=== PATIENT | male | born 1985 | race Two or more races ===

== ENCOUNTER → 2021-06-17 13:26 | Outpatient (REF) | payer MEDICAID, SELFPAY ==
--- NOTE | 2021-06-17 13:42 | ECG_ITS ---
Test Reason : PALPITATIONS Blood Pressure : / mmHG Vent. Rate : 084 BPM Atrial Rate : 084 BPM P-R Int : 174 ms QRS Dur : 096 ms QT Int : 350 ms P-R-T Axes : 066 066 042 degrees QTc Int : 413 ms Normal sinus rhythm Normal ECG No previous ECGs available Referred By: Daphney Pickett Electronically Signed By:LYLA KINNEY MD
== END ==
LOC: HO.CARD 13:26
PROVIDERS: PCP Nurse Practitioner Primary Care; Visit Provider Nurse Practitioner Primary Care
DX: R07.89 Other chest pain (principal); R00.2 Palpitations
CPT/HCPCS: 93005

== ENCOUNTER → 2021-07-10 10:32 | Outpatient (REF) | payer MEDICAID, SELFPAY ==
--- NOTE | 2021-07-10 11:00 | CA_ITS ---
Acquisition Time: 2021-07-10 10:55:23 Total Exercise Time: 00:12:01 Test Indications: Dyspnea Medications: LOSARTAN Protocol: CHERIE Max HR: 184 BPM 99% of Pred: 185 BPM Max BP: 160/090 mmHG Max Work Load: 13.4 METS Exercise stress test with exercise 12 min 1 sec of Cherie protocol achieving 99% MPHR, with jogging for with the last 3 min, with report of sob, chest tightness like he can't get the air in , without arrythmia, with normotensive response to exercise, without EKG changes meeting criteria for ischema. In recovery his symptoms resolved. Echo images obtained by tech at rest and immediately post peak exercise, Definity contrast used. Test reviewed with Dr Montague Referred By: Daphney Pickett Overread By: RACHANA PATRICIO
== END ==
LOC: HO.CARD 10:32
PROVIDERS: Visit Provider Nurse Practitioner Primary Care
DX: R07.89 Other chest pain (principal); I10 Essential (primary) hypertension
CPT/HCPCS: 93350; Q9957

== ENCOUNTER → 2021-09-19 11:10 | Outpatient (BNVA) | payer OTHER, SELFPAY | PROVIDERS: PCP Nurse Practitioner Primary Care; Visit Provider Physician Assistant | DX: S39.012A Strain of muscle, fascia and tendon of lower back, initial encounter (principal); X50.0XXA Overexertion from strenuous movement or load, initial encounter | CPT/HCPCS: 99203 ==

== ENCOUNTER → 2021-09-23 13:07 | Outpatient (BNVA) | payer OTHER, SELFPAY | PROVIDERS: PCP Nurse Practitioner Primary Care; Visit Provider Physician Assistant Medical | DX: S39.012A Strain of muscle, fascia and tendon of lower back, initial encounter (principal); X58.XXXA Exposure to other specified factors, initial encounter | CPT/HCPCS: 99213 ==

== ENCOUNTER 2023-01-16 08:00 | Outpatient (RCR) | payer MEDICAID, SELFPAY | END 2023-02-17 11:02 | disposition home or self-care (01) | LOC: HO.PT 08:00 | PROVIDERS: PCP Nurse Practitioner Primary Care; Visit Provider Nurse Practitioner Primary Care | DX: M54.50 Low back pain, unspecified (principal) | CPT/HCPCS: 97110; 97140; 97161; 97535 ==

== ENCOUNTER 2023-08-14 09:17 | Outpatient (REF) | payer MEDICAID, SELFPAY | END 2023-08-14 09:18 | disposition home or self-care (01) | LOC: HO.HHCL 09:17 | PROVIDERS: Visit Provider Nurse Practitioner Primary Care | DX: I10 Essential (primary) hypertension (principal); M79.10 Myalgia, unspecified site; R53.83 Other fatigue | CPT/HCPCS: 36415; 80048; 82043; 82550; 82570; 82607 ==

== ENCOUNTER 2023-08-19 07:30 | Outpatient (AMB) | payer MEDICAID, SELFPAY ==
[2023-08-19 07:49] VITALS: BP 138/88; PULSE 88; O2SAT 99; BMI 29.0
--- NOTE | 2023-08-19 07:49 | MHC.OFFVIS ---
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 Patient states I always had sleeping issues but the last few years Iv had some physical changes like fatigue, I feel sleepy during the day I cant watch a movie without falling asleep. Allergies SEAFOOD Allergy (Unknown, Uncoded 08/19/23 08:00) THROAT SWELLING HPI HPI Comments History of Present Illness Details 37 y/o male patient presents for new in-person visit for sleep consultation. Pt reports difficulty falling asleep, and staying sleep, It has been worsened over the last couple of years. He tosses and turns, it takes couple of hours to fall asleep. He snores and has gasping arousals in the middle of night. He wakes up around 3-4 am and it is hard to go back to sleep. He tried lots of things to sleep better, changed mattress, pillow, light and practice sleep hygiene, but they did not help. He feels tired and run out of energy during daytime. He used to be very athletic, but not anymore, he feels exhausted and feels not recover well after exercise. He lost about 60 lb over the last year. Sleep questionnaire: Have you ever been diagnosed with a sleep disorder? No. Have you ever had a sleep study in the past? No. Have you ever been treated for a sleep disorder? No. Do you take medications for a sleep disorder? No. Do you snore? Yes. Do you wake up gasping at night? Yes. Do you have episodes of apneas? Yes. If yes, are they witnessed? Yes. Do you have episodes of nocturnal chest pain or dyspnea? Yes. Do you have difficulty initiating sleep? Yes. Do you have difficulty maintaining sleep? Yes. Do you wake up tired? Yes. Do you have headaches upon awakening? Yes. Do you wake up with dry mouth or throat? Yes. Do you have GERD? No. Do you have nocturia? No. Do you have nocturnal leg cramps? Yes. Do you have symptoms of restless legs? Yes. Do you act out your dreams? Talking sometimes. Sleep hygiene questionnaire: What is your usual sleep routine? Usual bedtime is at 9 pm; Usual wake up time is at 4-5:30 am. Do you take naps? Try not to, but can fall asleep. Is your sleep environment cool, dark, and quiet? Yes. Do you exercise? No. Do you take caffeine or other stimulants? Coffee in the morning. Do you use electronics in bed? No. What is your work schedule? 7 am- 3: 30 pm. Hypersomnolence questionnaire: Do you have daytime tiredness or fatigue? Yes. Do you easily fall asleep when inactive? Yes. Have you ever had episodes of sudden weakness? No. Have you ever had episodes of sudden weakness associated with strong emotions? No. PFSH Family History (Updated 08/19/23 @ 08:03 by BRAD Ferreira) Father Sleep apnea HTN (hypertension) Mother Glaucoma Brother HTN (hypertension) Social History (Updated 08/19/23 @ 08:03 by BRAD Ferreira) Alcohol intake: never Patient Tobacco Use Status: Never used Tobacco Review of Systems Const All systems reviewed & are unremarkable except as noted in HPI and below Physical Exam Vital Signs: Last Vital Signs Pulse 88 08/19/23 07:49 BP 138/88 08/19/23 07:49 Pulse Ox 99 08/19/23 07:49 Oxygen Delivery Method Room Air 08/19/23 07:49 BMI result Body Mass Index 29.0 Const General: cooperative Nutritional Appearance: overweight Orientation/consciousness: patient oriented x3 Neck Neck: Yes full ROM and Yes supple Resp Effort & Inspection: normal respiratory effort and able to speak in complete sentences Neuro General: patient oriented x3, gait normal and moves all extremities Cognition (Neuro): normal cognition Gait exam (Neuro): Normal gait present Motor exam (neuro): 5/5 motor strength present throughout, Pronator motor function not present and no tremor noted Psych Appearance: grossly normal Mental Status: mental status grossly normal Speech and movement: Normal speech and movement present Affect: normal affect Attitude: cooperative Assessment & Plan Assessment & Plan (1) Daytime sleepiness: Code(s): R40.0 - Somnolence (2) Snoring: Code(s): R06.83 - Snoring (3) Difficulty sleeping: Code(s): G47.9 - Sleep disorder, unspecified Plan Pt is advised to undergo home sleep study to assess for sleep apnea. Will f/u with pt after study to discuss results and appropriate treatment options. Advised patient to try supplement, magnesium, calcium and vitmain D, and vitamin B complex with C. Encouraged patient to do daily gentle exercise, 30 walking daily, and having well balanced diet. Pt to call with any worsening concerns or questions. Orders: Orders RT home sleep study Today R06.83 - Snoring, R40.0 - Somnolence Coding Level of Care Code New Pt Level 4 (92738) Diagnoses Daytime sleepiness R40.0 Snoring R06.83 Difficulty sleeping G47.9
== END 2023-08-19 08:42 | disposition home or self-care (01) ==
PROVIDERS: PCP Nurse Practitioner Primary Care; Visit Provider Nurse Practitioner Family
DX: R40.0 Somnolence (principal); R06.83 Snoring; G47.9 Sleep disorder, unspecified
CPT/HCPCS: 99204

== ENCOUNTER → 2023-08-19 07:30 | Outpatient (BNVA) | payer MEDICAID, SELFPAY | PROVIDERS: PCP Nurse Practitioner Primary Care; Visit Provider Nurse Practitioner Family | DX: R40.0 Somnolence (principal); R06.83 Snoring; G47.9 Sleep disorder, unspecified | CPT/HCPCS: 99212 ==

== ENCOUNTER → 2023-10-06 15:41 | Outpatient (REF) | payer MEDICAID, SELFPAY | LOC: HO.SL 15:41 | PROVIDERS: PCP Nurse Practitioner Primary Care; Visit Provider Nurse Practitioner Family | DX: R40.0 Somnolence (principal); R06.83 Snoring | CPT/HCPCS: 95806 ==

== ENCOUNTER → 2023-10-06 15:54 | Outpatient (BNV) | payer MEDICAID, SELFPAY | PROVIDERS: PCP Nurse Practitioner Primary Care; Visit Provider Psychiatry & Neurology Neurology | DX: R06.83 Snoring (principal); R40.0 Somnolence | CPT/HCPCS: 95806 ==

== ENCOUNTER 2023-11-27 08:52 | Outpatient (AMB) | payer MEDICAID, SELFPAY ==
--- NOTE | 2023-11-27 09:00 | MHC.OFFVIS ---
Intake Vital Signs 11/27/23 09:05 Height 5 ft 11 in Weight 207 lb 8 oz BMI 28.9 BP 130/82 Blood Pressure Location Lt brachial Position Sitting Pulse 79 Pulse Source Pulse Oximeter Pulse Oximetry (%) 98 Oxygen Delivery Method Room Air Intake Visit Reasons: 3 mo f/u-Disturbance in Sleep Behavior/Fatigue-LvM Intake Note: Patient presents three month F/U disturbance in sleep. Allergies SEAFOOD Allergy (Unknown, Uncoded 08/19/23 08:00) THROAT SWELLING HPI HPI Comments History of Present Illness Details 38 y/o male patient presents for follow up of sleep study. Home sleep study result did not meet the criteria for sleep apnea. AHI was 4/hr and oxygen silke was 86% and mild snoring noted. His sleep has improved with nory, mag and D supplement. He can fall asleep easily, but still can wake up around 3 am, but it happens less frequently, about two times a week. He started exercise and trying to lose wt. PFSH Family History Father Sleep apnea HTN (hypertension) Mother Glaucoma Brother HTN (hypertension) Social History Alcohol intake: never Patient Tobacco Use Status: Never used Tobacco Review of Systems Const All systems reviewed & are unremarkable except as noted in HPI and below Physical Exam Vital Signs: Last Vital Signs Pulse 79 11/27/23 09:05 BP 130/82 11/27/23 09:05 Pulse Ox 98 11/27/23 09:05 Oxygen Delivery Method Room Air 11/27/23 09:05 BMI result Body Mass Index 28.9 Const General: cooperative Nutritional Appearance: overweight Orientation/consciousness: patient oriented x3 Neck Neck: Yes full ROM and Yes supple Resp Effort & Inspection: normal respiratory effort and able to speak in complete sentences Neuro General: patient oriented x3, gait normal and moves all extremities Cognition (Neuro): normal cognition Gait exam (Neuro): Normal gait present Motor exam (neuro): 5/5 motor strength present throughout, Pronator motor function not present and no tremor noted Psych Appearance: grossly normal Mental Status: mental status grossly normal Speech and movement: Normal speech and movement present Affect: normal affect Attitude: cooperative Assessment & Plan Assessment & Plan (1) Daytime sleepiness: Code(s): R40.0 - Somnolence (2) Snoring: Code(s): R06.83 - Snoring (3) Difficulty sleeping: Code(s): G47.9 - Sleep disorder, unspecified Plan Advised patient to continue to try magnesium, calcium and vitmain D, and vitamin B complex with C. Encouraged patient to do daily gentle exercise, 30 walking daily, and having well balanced diet. Pt to call with any worsening concerns or questions. Coding Level of Care Code Est Pt Level 3 (48568) Diagnoses Daytime sleepiness R40.0 Snoring R06.83 Difficulty sleeping G47.9
[2023-11-27 09:05] VITALS: BP 130/82; PULSE 79; O2SAT 98; BMI 28.9
== END 2023-11-27 09:41 | disposition home or self-care (01) ==
PROVIDERS: PCP Nurse Practitioner Primary Care; Visit Provider Nurse Practitioner Family
DX: R40.0 Somnolence (principal); R06.83 Snoring; G47.9 Sleep disorder, unspecified
CPT/HCPCS: 99213

== ENCOUNTER → 2023-11-27 08:52 | Outpatient (BNVA) | payer MEDICAID, SELFPAY | PROVIDERS: PCP Nurse Practitioner Primary Care; Visit Provider Nurse Practitioner Family | DX: G47.9 Sleep disorder, unspecified (principal); R06.83 Snoring; R40.0 Somnolence | CPT/HCPCS: 99212 ==

== ENCOUNTER 2024-05-18 08:01 | Outpatient (REF) | payer MEDICAID, SELFPAY ==
[2024-05-18 14:10] LABS: MANUAL DIFF FLAG NO
[2024-05-18 14:16] LABS: Basophils Percent Auto 0.4 % (0-2); Eosinophils Absolute Auto 0.1 X10*3/uL (0.0-0.4); Eosinophils Percent Auto 1.4 % (0-4); Hematocrit 46.5 % (42.0-52.0); Hemoglobin 15.4 g/dl (14.0-18.0); Imm Gran Abs Auto 0.06 X10*3/uL (0.00-0.03); Imm Gran Pct Auto 0.8 % (0.0-0.4); Lymphocytes Absolute Auto 2.2 X10*3/uL (1.2-4.9); Lymphocytes Percent Auto 28.1 % (20-40); Mean Corpuscular HGB Conc 33.1 g/dl (31.0-36.0); Mean Corpuscular Hemoglobin 28.7 pg (27.0-33.0); Mean Corpuscular Volume 86.8 fL (80.0-98.0); Mean Platelet Volume 11.4 fL (9.4-12.4); Monocytes Absolute Auto 0.6 X10*3/uL (0.1-1.2); Monocytes Percent Auto 7.8 % (2-11); Neutrophils Absolute Auto 4.7 x10*3/uL (2.0-8.3); Neutrophils Percent Auto 61.5 % (45-73); Platelet Count 250 X10*3/uL (160-400); Red Blood Count 5.36 X10*6/uL (4.60-5.80); Red Cell Distribution Width 13.2 % (11.0-16.0); White Blood Count 7.7 X10*3/uL (4.8-10.8)
[2024-05-18 14:35] LABS: Estimated Average Glucose 111 mg/dL; Hemoglobin A1c % 5.5 % (<6.0)
[2024-05-18 14:53] LABS: Alanine Aminotransferase 24 U/L (0-40); Albumin Level 4.1 g/dL (3.5-5.0); Alkaline Phosphatase 78 U/L (39-117); Anion Gap 13 (12-20); Aspartate Amino Transferase 16 U/L (5-37); Bilirubin Total 1.1 mg/dL (0.0-1.0); Blood Urea Nitrogen 20 mg/dL (9-16); Calcium 9.4 mg/dL (8.4-10.2); Carbon Dioxide 26 mmol/L (22-29); Chloride 105 mmol/L (96-108); Cholesterol 216 mg/dL (<200); Estimated Glomerular Filt Rate > 60; Glucose Random 87 mg/dL (60-115); HDL Cholesterol 49 mg/dL (>40); Iron 133 mcg/dL (45-160); LDL Cholesterol Calculated 105 mg/dL (<100); Percent Iron Saturation 41 % (15-50); Potassium 3.9 mmol/L (3.3-5.1); Sodium 140 mmol/L (135-145); TSH reflex Free T4 2.07 uIU/mL (0.32-4.0); Total Iron Binding Capacity 322 mcg/dL (228-428); Triglycerides 314 mg/dL (<150); Unsaturated Iron Binding 189 ug/dL
[2024-05-23 15:03] LABS: Aldosterone/Renin Ratio 6.5 Ratio (0.9-28.9); Plasma Renin Activity 0.62 ng/mL/h (0.25-5.82)
[2024-05-25 06:59] LABS: Testosterone, Free 76.4 pg/mL (35.0-155.0); Testosterone, Total 308 ng/dL (250-1100)
== END 2024-05-18 08:02 | disposition home or self-care (01) ==
LOC: HO.CHCLDS 08:01
PROVIDERS: Visit Provider Internal Medicine
DX: I10 Essential (primary) hypertension (principal); R73.03 Prediabetes; R53.83 Other fatigue
CPT/HCPCS: 36415; 80053; 80061; 82088; 83036; 83540; 83835; 84402; 84403; 84443; 85025

== ENCOUNTER 2024-05-18 08:25 | Outpatient (REF) | payer MEDICAID, SELFPAY ==
[2024-05-22 12:24] LABS: Metanephrine, Free 30 pg/mL (<=57); Normetanephrines, Free 35 pg/mL (<=148); Total Metanephrine, Free 65 pg/mL (<=205)
== END 2024-05-18 08:26 | disposition home or self-care (01) ==
LOC: HO.LAB 08:25
PROVIDERS: PCP Internal Medicine; Visit Provider Internal Medicine
DX: I10 Essential (primary) hypertension (principal)
CPT/HCPCS: 36415; 83835

== ENCOUNTER 2024-05-23 14:26 | Outpatient (REF) | payer OTHER, SELFPAY ==
--- NOTE | ~2024-05-23 | US_ITS ---
EXAMINATION: US RETROPERITONEAL LIMITED (RENAL ONLY) CLINICAL INFORMATION: Hypertension. COMPARISON: None available. TECHNIQUE: Real-time imaging of the kidneys. Limited visualization due to bowel gas. FINDINGS: RIGHT KIDNEY: 11.4 x 5.2 x 5.1 cm (SAG x AP x TRV). Possible 0.5 cm upper pole calculus. Limited visualization. No hydronephrosis. Renal cortical thickness is normal. LEFT KIDNEY: 11.8 x 5.3 x 5.2 cm (SAG x AP x TRV). Possible 0.6 cm upper pole calculus. Limited visualization. No hydronephrosis. Renal cortical thickness is normal. US/US renal BI IMPRESSION: Possible bilateral renal calculi. No hydronephrosis.
== END 2024-05-23 14:27 | disposition home or self-care (01) ==
LOC: HO.US 14:26
PROVIDERS: PCP Internal Medicine; Visit Provider Internal Medicine
DX: I10 Essential (primary) hypertension (principal)
CPT/HCPCS: 76775

== ENCOUNTER 2025-02-04 20:38 | Emergency (ER) | payer OTHER, SELFPAY ==
--- NOTE | ~2025-02-04 | XR_ITS ---
CLINICAL HISTORY: pain 3 views lumbar spine Comparison: None Findings: Normal vertebral body alignment. No acute fractures or dislocation. No significant degenerative change. IMPRESSION: No acute findings. This document has been electronically signed by: Axel Conrad MD on 02/04/2025 22:02:49
[2025-02-04 20:50] VITALS: BP 166/89; PULSE 90; RESP 16; TEMP 36.8; O2SAT 98; BMI 30.3
--- NOTE | 2025-02-04 20:51 | ED.GENADULT ---
HPI - General Adult General Chief complaint: Extremity Problem Stated complaint: lower back pain Time Seen by Provider: 02/04/25 22:08 Source: patient Limitations: no limitations History of Present Illness ED Provider: Janie Fields PA-C HPI narrative: 39-year-old male presents with low back pain x 2 weeks. Patient states all over he had been running, he woke the next day with low back pain. His symptoms seemed to improve. Over the past day, patient states he was leaning over counter he stood up abruptly and had acute onset low back pain with radiation down the right lower extremity. Associated paresthesias of lower extremity. Denies urinary retention, bowel incontinence, weakness of lower extremities or saddle anesthesia. Patient states he sustained a low back injury in the past, he had required physical therapy. Related Data Home Medications ?Medication ?Instructions ?Recorded ?Confirmed chlorhexidine gluconate 0.12 % 15 ml PO BID 11/27/23 mouthwash Previous Rx's ?Medication ?Instructions ?Recorded ketorolac 10 mg tablet 10 mg PO Q6H PRN pain #20 tabs 02/04/25 methocarbamol 750 mg tablet 1,500 mg (2 x 750 mg) PO Q8H PRN 02/04/25 pain, moderate #30 tabs methylprednisolone 4 mg tablets in 4 mg PO QAM #21 ea 02/04/25 a dose pack (Medrol (Edgar)) oxycodone 5 mg tablet 5 mg PO Q6H PRN pain #16 tabs 02/04/25 Allergies Allergy/AdvReac Type Severity Reaction Status Date / Time SEAFOOD Allergy Unknown THROAT Uncoded 02/04/25 20:52 SWELLING Review of Systems Review of Systems: Yes all other systems are reviewed and are negative Constitutional: Constitutional: Denies fatigue and Denies fever(s) Cardiovascular: Cardiovascular: Denies chest pain Gastrointestinal: Gastrointestinal: Denies abdominal pain Musculoskeletal: Musculoskeletal: Reports back pain, Denies muscle weakness, Denies numbness, Reports radiating pain into limb and Reports tingling Neurologic: Denies numbness and Reports tingling Endocrine: Endocrine: Denies fatigue PMFSH Past Medical History Attestation statement: The following information was validated with the patient. Family History Family History Father Sleep apnea HTN (hypertension) Mother Glaucoma Brother HTN (hypertension) Social History Social History Unable to assess alcohol history related to: Unknown Alcohol intake: never Patient Tobacco Use Status: Never used Tobacco Use of substances other than those prescribed or required for medical reasons: Unknown Advance Directives: No Advance Directives Information Provided: No Do you have a plan to hurt others: No Plan Physical Exam ED Vital Signs: Vital Signs - 24 hr 02/04/25 20:50 02/04/25 22:39 Temperature 98.2 F 98.8 F Pulse Rate 90 92 Respiratory Rate 16 18 Blood Pressure 166/89 H 145/69 H Pulse Oximetry 98 97 Oxygen Delivery Method Room Air Room Air BMI result Body Mass Index 30.3 Const Other: Alert appears very uncomfortable Orientation/consciousness: patient oriented x3 Resp Effort & Inspection: normal respiratory effort Cardio Other: Normal peripheral perfusion Back/Spine/Pelvis Other: No midline tenderness Skin Other: Warm dry no rash Neuro Other: Antalgic gait General: patient oriented x3, no focal motor deficits and CN's II-XI intact bilaterally Extrem Other: Strength 5/5 bilateral lower extremities, patient unable to perform forward bend. He is very rigid with the his movements with transitioning from lying down to sitting and then sitting to standing. Psych Other: Cooperative Course Course Course Narrative: Medical screening exam performed. Please refer to detailed history, exam, evaluation, and management by primary provider. Acute low back pain starting , 01/19 after running. Medical Decision Making Medical Decision Making [facility] Narrative: 39-year-old male presents with low back pain x 2 weeks. Patient states all over he had been running, he woke the next day with low back pain. His symptoms seemed to improve. Over the past day, patient states he was leaning over counter he stood up abruptly and had acute onset low back pain with radiation down the right lower extremity. Associated paresthesias of lower extremity. Denies urinary retention, bowel incontinence, weakness of lower extremities or saddle anesthesia. Patient states he sustained a low back injury in the past, he had required physical therapy. No chronic issues History: Per patient I have considered the following differential diagnoses: Lumbar strain, lumbar radiculopathy, cauda equina, compression fracture Plan: X-ray obtained from triage, there was fracture, he has no significant arthritic changes. Patient has symptoms of lumbar radiculopathy without red flag signs symptoms concerning for cord compression. We will treat with analgesia and anti-inflammatory. X-ray lumbar spine:indings: Normal vertebral body alignment. No acute fractures or dislocation. No significant degenerative change. IMPRESSION: No acute findings. Discharge Plan Discharge Clinical Impression: Acute lumbar radiculopathy Patient Disposition: Home, Self-Care Instructions: Lumbar Radiculopathy (ED), Lower Back Exercises (ED) Additional Instructions: You are being treated for lumbar radiculopathy, or sciatica. See home care instructions. The x-ray was normal. Use the Medrol Dosepak as directed, this is a steroid taper , it is an anti-inflammatory. Use the ketorolac as directed this is also an anti-inflammatory but take it with food. Use the methocarbamol as needed for further pain this is the muscle relaxant. It may cause drowsiness do not drive or operate machinery while taking this medication. Lastly use the oxycodone as needed for further pain, this medication can also be sedating, do not drive or operate machinery. The oxycodone can cause constipation, use an [id number] stool softener to help prevent constipation. Follow up with your primary care provider next week. Prescriptions: New methocarbamol 750 mg tablet 1,500 mg PO Q8H PRN (Reason: pain, moderate) Qty: 30 0RF oxycodone 5 mg tablet 5 mg PO Q6H PRN (Reason: pain) Qty: 16 0RF Rx Instructions: Partial Fill upon patient request. methylprednisolone [Medrol (Edgar)] 4 mg tablets,dose pack 4 mg PO QAM Qty: 21 0RF Rx Instructions: Take per package instructions ketorolac 10 mg tablet 10 mg PO Q6H PRN (Reason: pain) Qty: 20 0RF Rx Instructions: maximum total duration of 5 days from all oral, intranasal, or parenteral formulations. The patient had an intramuscular dose of Toradol here in the emergency department. No Action chlorhexidine gluconate 0.12 % mouthwash 15 ml PO BID Print Language: Dutch
[2025-02-04 22:39] VITALS: BP 145/69; PULSE 92; RESP 18; TEMP 37.1; O2SAT 97
[2025-02-04] MEDS: Ketorolac Tromethamine 15 MG/ML VIAL IM (23:46)
[2025-02-04] MEDS: oxyCODONE HCl Immed Release 5 MG TABLET PO (23:46)
[2025-02-04] MEDS: methocarbamoL 750 MG TABLET 1500 MG PO (23:47)
[2025-02-04 23:55] VITALS: BP 145/69; PULSE 92; RESP 18; TEMP 37.1; O2SAT 97
== END 2025-02-04 23:56 | disposition home or self-care (01) ==
PROVIDERS: Emergency Provider Emergency Medicine; PCP Internal Medicine
DX: M54.16 Radiculopathy, lumbar region (principal); M54.50 Low back pain, unspecified; R20.2 Paresthesia of skin; Z79.899 Other long term (current) drug therapy
CPT/HCPCS: 72100; 96372; 99284; J1885

== ENCOUNTER → 2025-02-04 20:53 | Outpatient (BNV) | payer MEDICAID, SELFPAY | PROVIDERS: Emergency Provider Emergency Medicine; PCP Internal Medicine; Visit Provider Radiology Diagnostic Radiology | DX: M54.50 Low back pain, unspecified (principal) | CPT/HCPCS: 72100 ==

== ENCOUNTER 2025-09-08 09:11 | Outpatient (REF) | payer OTHER, SELFPAY ==
--- NOTE | ~2025-09-08 | CT_ITS ---
CLINICAL HISTORY: headache with sexual activity CT head without contrast Comparison: None Findings: No acute hemorrhage, acute major vascular distribution infarct, intracranial mass, midline shift or hydrocephalus. No extra-axial fluid collection. Visualized paranasal sinuses and mastoid air cells normal. Orbits unremarkable. The cranium appears intact. Superficial soft tissue is unremarkable. Impression: 1. No acute intracranial finding. This document has been electronically signed by: Hellen Leon MD on 09/11/2025 12:45:37
--- OUTSIDE RECORDS SUMMARY | 2025-09-08 10:05 | XMS_ITS | Encounter Summary ---
Author Organization [employer] Address [address] [place] [address] [address] [place] [address] Care Team Providers Care Slicing Machine Operator/Tender Name Role Phone Daphney Pickett Primary Care Provider [phone] Meir Taylor MD Primary Care Prov ider Encounter Details Date Type Department Care Team (Latest Contact Info) Description 06/17/2022 Abstract [facility] CONVERSIONS Dental, Provider, DDS Social History Tobacco Use Types Packs/Day Years Used Date Smoking Tobacco: Never Assessed Sex and Gender Information Value Date Recorded Sex Assigned at Male 09/08/2022 10:30 AM EDT Legal Sex Male 10:30 AM EDT Gender Identity Male 09/08/2022 10:30 AM EDT Sexual Orientation Straight 09/08/2022 10 :30 AM EDT documented as of this encounter Plan of Treatment Not on file documented as of this encounter Visit Diagnoses Not on filedocumented in this encounter Care Teams Slicing Machine Operator/Tender Relationship Specialty Start Date End Date Daphney Pickett ANP [address] [place] [id number] PCP - General Family Medicine 11/14/22 05/16/24 Meir Taylor MD [address] [place] [address] PCP - General Internal Medicine 05/17/24 documented as of this encounter
--- OUTSIDE RECORDS SUMMARY | 2025-09-08 10:06 | XMS_ITS | Clinical Summary ---
Author Organization [employer] Address [address] [place] [address] 7[address] [place] [address] Care Team Providers Care Faculty Support Coordinator Name Role Phone Meir Taylor MD Primary Care Prov ider Allergies No known active allergies Medications * This document contains information received from the source organization and may not represent a complete record from that organization. ibuprofen 600 MG tabletIndications: Acute pericoronitis Take 1 tablet (600 mg) by mouth every 6 (six) hours if needed for mild pain for up to 20 doses. 20 tablet 3 Active chlorhexidine (Peridex) 0.12 % solutionIndication s:Acute pericoronitis Swish 15 mL by mouth morning and night for 1 minute. Spit, do not swallow. Do not eat or drink anything for 30 minutes after use. 473 mL 3 Active lisinopril (Prinivil) 20 MG tabletIndications: Benign essential hypertension Take 1 tablet (20 mg) by mouth Once per day. 30 tablet 11 5 02/10/20 26 Active metoprolol succinate XL (Toprol XL) 25 MG 24 hr tablet Take 1 tablet (25 mg) by mouth Once per day. Do not crush or chew. 30 tablet 11 5 07/24/20 26 Active Active Problems Problem Noted Date Diagnosed Date Other fatigue 05/18/2024 Assessment & Plan (07/18/2024 2:32 PM EDT): Blood work done came negative, discussed most likely symptoms related to mdd/anxiety, he is not interested in following with therapist Assessment & Plan (05/18/2024 2:12 PM EDT): Will test for secondary chemical causes, most likely related to MDD/stress/Anxiety Bloating 05/18/2024 Assessment & Plan (05/18/2024 2:12 PM EDT): Patient having episode of diarrhea that has been waking him up at night, with associated bloating, most likely IBS, will refer to GI for evaluation Persistent depressive disorder 05/17/2024 Assessment & Plan (05/20/2024 12:23 PM EDT): During IBH Consult Buck presenting with depressed mood, loss of interests/pleasure , changes in sleep difficulty falling asleep, psychomotor agitation, psychomotor retardation, trouble concentrating, thoughts of worthlessness or guilt, fatigue/loss of energy, inappropriate guilt , hopelessness, worthlessness , difficulty concentrating and excessive worry/anxiety, difficulty controlling worry, restless/keyed up/On edge, easily fatigued, difficulty concentrating/Mind going blank , irritability, and sleep disturbance difficulty falling asleep, for a period of 24+ mo, for all symptoms; in the context of , family issues, marriage, and family relocation from [place]. Severity of symptoms cause a significant distress and impairment in critical areas of functioning. Buck reports that since his home relocation (2019) he has been experiencing a lot of stress, depressed mood and family problems. His grandma in [place] about a year ago, he showed sadness associated with this significant loss. He's currently having marital problems and financial concerns. Buck used to enjoy life and practice sports and different activities, but now he has lost motivation and desire due to mental health issues. During today's session, Buck was engaged with active, reflective listening. Explored options for psychotherapy services and medication management. Buck prefers to utilize the [facility] program in [place] for same-day appointment. clinician reviewed risk, current stressors, triggers and protective factors. Patient was open and flexible to explore and practice breathing exercises during today's session. PLAN: (check all that apply) Behavioral Health Integration Plan Internal Follow up with [facility] Patient Self Plan Patient to utilize skills provided in intervention , Patient to reach out to [facility] team as needed, Comply with medication , and Patient to reach out to [facility] as needed. Pt prefers to utilize [facility] center in [place] with N. He will also follow-up with clinician during next medical appointment. Anxiety 05/17/2024 Assessment & Plan (05/20/2024 12:24 PM EDT): During IBH Consult Buck presenting with depressed mood, loss of interests/pleasure , changes in sleep difficulty falling asleep, psychomotor agitation, psychomotor retardation, trouble concentrating, thoughts of worthlessness or guilt, fatigue/loss of energy, inappropriate guilt , hopelessness, worthlessness , difficulty concentrating and excessive worry/anxiety, difficulty controlling worry, restless/keyed up/On edge, easily fatigued, difficulty concentrating/Mind going blank , irritability, and sleep disturbance difficulty falling asleep, for a period of 24+ mo, for all symptoms; in the context of , family issues, marriage, and family relocation from [place]. Severity of symptoms cause a significant distress and impairment in critical areas of functioning. Buck reports that since his home relocation (2019) he has been experiencing a lot of stress, depressed mood and family problems. His grandma in [place] about a year ago, he showed sadness associated with this significant loss. He's currently having marital problems and financial concerns. Buck used to enjoy life and practice sports and different activities, but now he has lost motivation and desire due to mental health issues. During today's session, Buck was engaged with active, reflective listening. Explored options for psychotherapy services and medication management. Buck prefers to utilize the [facility] program in [place] for same-day appointment. clinician reviewed risk, current stressors, triggers and protective factors. Patient was open and flexible to explore and practice breathing exercises during today's session. PLAN: (check all that apply) Behavioral Health Integration Plan Internal Follow up with [facility] Patient Self Plan Patient to utilize skills provided in intervention , Patient to reach out to [facility] team as needed, Comply with medication , and Patient to reach out to [facility] as needed. Pt prefers to utilize [facility] center in [place] with N. He will also follow-up with clinician during next medical appointment. MARK (obstructive sleep apnea) 08/11/2023 Tight chest 11/13/2022 Benign essential hypertension 08/12/2016 Assessment & Plan (07/18/2024 2:33 PM EDT): Has been off medication for the past week, reviewed previous results which were within normal limits, renewed treatment, continue low sodium diet and exercise as tolerated Assessment & Plan (05/18/2024 2:10 PM EDT): Has been off medication, refers having side effects related to losartan will start lisinopril. Keep bp log target <140/90. Follow up in 1 month Disturbance in sleep behavior 08/12/2016 Encounters Date Type Department Care Team Description 08/07/2025 9:30 AM EDT Office Visit [facility] [address] [place] [id number] Sumaya Bennett MD Anxiety (Primary Dx) 08/07/2025 Travel 07/31/2025 Telephone [facility] [address] [place] [address] Meir Taylor MD Referral 07/25/2025 Telephone [facility] [address] [place] [address] Meir Taylor MD Medication Question 07/24/2025 10:00 AM EDT Office Visit [facility] [address] [place] [id number] Socrates Cortes MD Headache associated with sexual activity (Primary Dx) 07/24/2025 Travel 06/20/2025 Telephone [facility] [address] [place] [address] Meir Taylor MD from Last 3 Months Immunizations Immunization Administration Dates Next Due Hep B, adult 10/10/2021,07/18/2021,06/20/2021 Influenza injectable quadriv alent preservative free 08/05/2022 Influenza, seasonal, injecta ble, preservative free 08/13/2016 Pfizer Covid-19 Vaccine 12+ Bivalent 11/14/2022 Tdap 06/13/2021 Family History Medical History Relation Name Comments Hypertension Father Glaucoma Maternal Grandmother Hypertension Maternal Grandmother Glaucoma Mother Relation Name Status Comments Father Maternal Grandmother Mother Social History Tobacco Use Types Packs/Day Years Used Date Smoking Tobacco: Never Passive Smoke Exposure: Never Smokeless Tobacco: Never Tobacco Cessation:Counseling Given: Not Answered Alcohol Use Standard Drinks/Week Comments Never 0 (1 standard drink = 0.6 oz pur e alcohol) Alcohol Answer Date Recorded How often do you have a drink containing alcohol ? 1 02/09/2025 How many drinks containing a lcohol do you have on a typical day when you are drinking? 0 02/09/2025 How often do you have six or more drinks on one occasion? 0 02/09/2025 Depression Answer Date Recorded Patient Health Questionnaire-9 Score 8 02/09/2025 Patient Health Questionnaire-9 Score 8 02/09/2025 Last PHQ-9: Questionnaire Data Not on file 0 02/09/2025 Housing Stability Answer Date Recorded What is your housing situation today? I have ginaelida king 02/09/[address] you li ve. Do you have problems with any of the following? I am not sure 02/09/2025 Food Insecurity Answer Date Recorded Within the past 12 months, y ou worried that your food would run out before you got money to buy more: Never True 02/09/2025 Within the past 12 months,th e food you bought just didn't last and you didn't have enough money to get more: Never True 01/2025 Transportation Answer Date Recorded In the past 12 months, has l ack of transportation kept you from medical appts, meetings, work or from getting things needed for daily living? No 02/09/2025 Utilities Answer Date Recorded In the past 12 months, has t he electric, gas, oil or water company threatened to shut off services in your home? No 02/09/2025 Depression Answer Date Recorded Patient Health Questionnaire-2 Score 2 02/09/2025 Internet Access Answer Date Recorded Internet Access Q1 Yes 02/09/2025 Internet Access Q2 Not on file 02/09/2025 Sex and Gender Information Value Date Recorded Sex Assigned at Male 09/08/2022 10:30 AM EDT Legal Sex Male 10:30 AM EDT Gender Identity Male 09/08/2022 10:30 AM EDT Sexual Orientation Straight 09/08/2022 10 :30 AM EDT Last Filed Vital Signs Vital Sign Reading Time Taken Comments Blood Pressure 156/85 07/24/2025 10:06 AM EDT Pulse 77 07/24/2025 9:42 AM EDT Temperature 36.7 C (98 F) 07/24/2025 9:42 AM EDT Respiratory Rate 18 07/24/2025 9:42 AM EDT Oxygen Saturation 98% 07/24/2025 9:42 AM EDT Inhaled Oxygen Concentration - - Weight 103 kg (227 lb 3.2 oz) 07/24/2025 9:42 AM EDT Height 180.3 cm (5' 11 ) 07/24/2025 9:42 AM EDT Body Mass Index 31.69 07/24/2025 9:42 AM EDT Plan of Treatment Health Maintenance Due Date Last Done Comments Family Planning (PISQ) 2000 HPV Vaccines (1 - Male 3-dose series) 2000 Dental X-Ray: Bitewings 04/22/2025 04/21/20 24, 06/09/2022, 07/23/2016 Dental Oral Exam 05/30/2025 11/29/2024, 11/2021, 06/09/2022, Additional history exists Dental Prophylaxis 05/30/2025 11/29/2024, 0 04/21/2024, 06/17/2022, Additional history exists COVID-19 Vaccine ( season) 2025 11/14/2022, 03/16/2021, 02/24/2021 Influenza Vaccine (#1) 2025 08/05/2022, 2015 Alcohol/Substance Use Screening 02/09/2026 02/09/2025 Depression Screening 02/09/2026 02/09/2025, 02/10/20 25 SDOH Screening 02/09/2026 02/09/2025 Disability Screening 07/24/2026 07/24/2025 Tobacco Screening 07/24/2026 07/24/2025 Dental X-Ray: Full Mouth 11/07/2026 023, 06/09/2022, 07/23/2016 Lipid Panel 05/18/2029 05/18/2024, 01/0 07/2023, 01/30/2021 DTaP/Tdap/Td Vaccines (2 - Td or Tdap) 06/13/2031 06/13/2021 Zoster Vaccines (1 of 2) 2035 RSV Patients and Patients Aged 60 years or older (1 - 1-dose 75+ series) 2060 HIV Screening Completed 01/30/2021 Hepatitis C Screening Completed 01/30/2021 Hepatitis B Vaccines Completed 10/10/2021, 07/18/2021, 06/20/2021 HIB Vaccines Aged Out No longer eligi ble based on patient's age to complete this topic Hepatitis A Vaccines Aged Out No long er eligible based on patient's age to complete this topic IPV Vaccines Aged Out No longer eligi ble based on patient's age to complete this topic Meningococcal B Vaccine Aged Out No l onger eligible based on patient's age to complete this topic Meningococcal Vaccine Aged Out No mar[place] eligible based on patient's age to complete this topic Pneumococcal Vaccine: Pediatrics (0 to 5 Years) and At-Risk Patients (6 to 49) Years Aged Out No longer eligible based on patient's age to complete this topic RSV under 20 months Aged Out No longe r eligible based on patient's age to complete this topic Rotavirus Vaccines Aged Out No longer eligible based on patient's age to complete this topic Procedures Procedure Name Priority Date/Time Associated Diagnosis Comments ECG 12-LEAD Routine 07/24/2025 10:13 AM EDT Headache associated with sexual activity PROPHYLAXIS - ADULT Routine 11/29/2024 8 :00 AM EST PERIODIC ORAL EVALUATION - ESTABLISHED PATIENT Routine 11/29/2024 8:00 AM EST LIPID PANEL, STANDARD Routine 05/18/2024 8:07 AM EDT Benign essential hypertension BITEWINGS - 4 RADIOGRAPHIC IMAGES Routine 04/21/2024 2:00 PM EDT PANORAMIC RADIOGRAPHIC IMAGE Routine 11/06/2023 8:30 AM EST Acute pericoronitis ZZZ HISTORICAL HEPATITIS C AB W/REFL TO HCV RNA, QN, PCR Routine 01/30/2021 8:43 AM EDT HIV 1/2 ANTIGEN/ANTIBODY, FOURTH GENERATION W/RFL Routine 01/30/2021 8:43 AM EDT from Last 3 Months or Most Recently Relevant to Health Maintenance Results * ECG 12 lead (07/24/2025 10:13 AM EDT) Narrative Name, MD Socrates - 07/24/2025 10:13 AM EDT Normal sinus rhythm. Heart rate of 82. No ST segment elevation or depression. No T changes. Normal EKG. us Socrates Cortes MD ECG ORDERABLES Final Result * (ABNORMAL) Lipid Panel, Standard (05/18/2024 8:07 AM EDT) Triglycerides 314(H) <150 mg/dL [facility] Comment:Desirable Triglyceri de: less than 150 mg/dLBorderline High Triglyceride 150-199 mg/dLHigh Triglyceride: 200-499 mg/dLVery High Triglyceride: greater than or equal to 5OO mg/dL Cholesterol 216(H) <200 mg/dL [facility] Comment:Desirable Cholestero l: less than 200 mg/dLBorderline High Cholesterol: 200-239 mg/dLHigh Cholesterol: greater than 239 mg/dL LDL Cholesterol Calculated 105(H) <100 mg/dL [facility] Comment:Desirable LDL: less than 100 mg/dLNear Optimal/Above Optimal LDL: 110- 129 mg/dLBorderline High LDL: 130-159 mg/dLHigh LDL: 160-189 mg/dLVery High LDL: greater than or equal to 190 mg/dL HDL Cholesterol 49 >40 mg/dL [facility] Comment:Desirable HDL: great er than 40 mg/dL Note: This HDL assay may give artificially low results in patients with liver disease. Blood Venous blood specimen / Unknown 05/18/2024 8:07 AM EDT 05/18/2024 1:59 PM EDT us Meir Berg MD LAB BLOOD ORDERABL ES Final Result [facility] [address] [place] [phone] * HEPATITIS C AB W/REFL TO HCV RNA, QN, PCR (01/30/2021 8:43 AM EDT) HEPATITIS C ANTIBODY NON-REACT [facility] NON-REACT [facility] INDEX 0.01 <1.00 [facility] Comment: HCV antibody was non-reactive. There is no laboratory evidence of HCV infection. In most cases, no further action is required. However, if recent HCV exposure is suspected, a test for HCV RNA (test code 08257) is suggested. For additional information please refer to http://Uptake.Lutonix/faq/AQL95t6 (This link is being provided for informational/ educational purposes only.) 01/30/2021 8:43 AM EDT us Daphney Pickett ANP HISTORICAL/NON ORDERABLE LABS Fi nal Result Performing Organization Address City/[facility] de Phone Number [facility] [address] * HIV 1/2 ANTIGEN/ANTIBODY,FOURTH GENERATION W/RFL (01/30/2021 8:43 AM EDT) HIV-1/2 ANTIGEN AND ANTIBODIES, 4TH GENERATION W/ REFLEX NON-REACT KATLIN NON-REACT KATLIN [facility] Comment: HIV-1 antigen and HIV-1/HIV-2 antibodies were not detected. There is no laboratory evidence of HIV infection. PLEASE NOTE: This information has been disclosed to you from records whose confidentiality may be protected by state law. If your state requires such protection, then the state law prohibits you from making any further disclosure of the information without the specific written consent of the person to whom it pertains, or as otherwise permitted by law. A general authorization for the release of medical or other information is NOT sufficient for this purpose. For additional information please refer to http://Uptake.Lutonix/faq/JUM010 (This link is being provided for informational/ educational purposes only.) The performance of this assay has not been clinically validated in patients less than 2 years old. 01/30/2021 8:4 3 AM EDT us Daphney Pickett ANP LAB BLOOD ORDERABLES Final Resul t Performing Organization Address City/State/[facility] Co de Phone Number [facility] [address] from Last 3 Months or Most Recently Relevant to Health Maintenance Insurance [facility] Address: [address] [address] [place] [address] DENTAL - HSN FULL (MEDICAID) Care Teams Faculty Support Coordinator Relationship Specialty Start Date End Date Meir Taylor MD [address] [place] [phone] PCP - General Internal Medicine 05/17/24
--- OUTSIDE RECORDS SUMMARY | 2025-09-08 10:06 | XMS_ITS | Encounter Summary ---
Author Organization [employer] Address [address] [place] [address] [address] [place] [address] Care Team Providers Care Director Of Sales And Marketing Name Role Phone Daphney Pickett Primary Care Provider [phone] Meir Taylor MD Primary Care Prov ider Reason for Visit * Reason Onset Date Comments notes 03/17/2023 Encounter Details Date Type Department Care Team ([facility] st Contact Info) Description 03/17/2023 Telephone [facility] [address] [place] [address] Daphney Pickett ANP [address] [place] [address] notes Social History Tobacco Use Types Packs/Day Years Used Date Smoking Tobacco: Never Passive Smoke Exposure: Never Smokeless Tobacco: Never Alcohol Use Standard Drinks/Week Comments Never 0 (1 standard drink = 0.6 oz pur e alcohol) PHQ-2 Answer Date Recorded Patient Health Questionnaire-2 Score 0 11/14/2022 Depression Answer Date Recorded Patient Health Questionnaire-2 Score 0 11/14/2022 Sex and Gender Information Value Date Recorded Sex Assigned at Male 09/08/2022 10:30 AM EDT Legal Sex Male 10:30 AM EDT Gender Identity Male 09/08/2022 10:30 AM EDT Sexual Orientation Straight 09/08/2022 10 :30 AM EDT documented as of this encounter Miscellaneous Notes * Telephone Encounter - Josephine Lackey - 03/19/2023 11:19 AM EDT Tc from [facility] Neurology & sleep dept stating they received office notes with referral however office notes printed out sides ways and cut off, is requesting for notes to be re faxed, HIM transferred call back to call center. [phone] Please contact at [phone] * Telephone Encounter - Georgina Pleitez - 03/17/2023 10:56 AM EDT Tc from Brooke at [facility] Neurology and Sleep Dept calling in regards to referral being incomplete. Theyneed to have a PCP order, demographics and insurance and if authorization is needed please sent also. Fax number [phone]. documented in this encounter Plan of Treatment Not on file documented as of this encounter Visit Diagnoses Not on filedocumented in this encounter Care Teams Director Of Sales And Marketing Relationship Specialty Start Date End Date Daphney Pickett ANP [address] [place] [phone] PCP - General Family Medicine 11/14/22 05/16/24 Meir Taylor MD [address] [place] [phone] PCP - General Internal Medicine 05/17/24 documented as of this encounter
--- OUTSIDE RECORDS SUMMARY | 2025-09-08 10:06 | XMS_ITS | Encounter Summary ---
Author Organization [employer] Address [address] [facility] [address] [place] [address] Care Team Providers Care Attendant Honor Bar Name Role Phone Meir Taylor MD Primary Care Prov ider Reason for Visit * Reason Onset Date Comments Medication Question 07/25/2025 Encounter Details Date Type Department Care Team ([facility] Contact Info) Description 07/25/2025 Telephone [facility] [address] [place], [place] [phone] Meir Taylor MD [address] [place] [address] Medication Question Social History Tobacco Use Types Packs/Day Years [...] is your housing situation today? I have gina king 02/09/[address] you [...] encounter Miscellaneous Notes * Telephone Encounter - Juan Hilario - 07/25/2025 3:46 PM EDT Tc from pt and stating they read up on metoprolol succinate XL (Toprol XL) 25 MG 24 hr tablet , and has not started taking it are scared of listed side effects. Looking for alternative Contact pt at [phone] documented in this encounter Plan of Treatment Not on file documented as of this encounter Visit Diagnoses Not on filedocumented in this encounter Additional Health Concerns Assessment Noted Time PHQ-9 Depression Total Score: 8 02/10/20 25 4:07 PM EDT documented as of this encounter Care Teams Attendant Honor Bar Relationship Specialty Start Date End Date Meir Taylor MD [address] [place] [phone] PCP - General Internal Medicine 05/17/24 documented as of this encounter
== END 2025-09-08 09:12 | disposition home or self-care (01) ==
LOC: HO.CT 09:11
PROVIDERS: PCP Internal Medicine; Visit Provider Internal Medicine Geriatric Medicine
DX: G44.82 Headache associated with sexual activity (principal)
CPT/HCPCS: 70450

== ENCOUNTER → 2025-09-08 09:14 | Outpatient (BNV) | payer OTHER, SELFPAY | PROVIDERS: PCP Internal Medicine; Visit Provider Radiology Diagnostic Radiology | DX: G44.82 Headache associated with sexual activity (principal) | CPT/HCPCS: 70450 ==